=== PATIENT | female | born 1990 | race Caucasian/White ===

== ENCOUNTER 2024-09-04 21:57 | Emergency (ER) | payer MEDICAID, SELFPAY ==
--- NOTE | ~2024-09-04 | CT_ITS ---
Noncontrast CT scan of the cervical spine Technique: Multiple contiguous axial [address] images of the cervical spine were obtained and rec onstructed in 2D sagittal and coronal planes on the acquisition scanner. Dose reduction technique was used on this scan by utilizing automated exposure control, adjustment of the mA and/or kV according to patient size. The dose-length product (DLP) was 564.70 mGy-cm. Clinical History: Right upper extremity radiculopathy Findings: No fractures or dislocations. There is minimal reversal normal cervical lordosis. There is moderate degenerative disc narrowing at C5-C6. There mild uncovertebral degenerative changes, most n otably at C3-C4 and C5-C6. At C2-C3, there is no significant disc bulge or herniation. No spinal canal stenosis, cord compressio n, or neural foraminal narrowing evident. At C3-C4, no disc bulge or herniation evident. No definite spinal canal stenosis, cord compression, o r neural foraminal narrowing. At C4-C5, no disc bulge or herniation evident. No spinal canal stenosis, cord compression, or definit e neural foraminal narrowing. At C5-C6, there is mild disc osteophyte complex, with mild bilateral neural foraminal narrowing. Poss ible minimal canal stenosis. At C6-C7, there is no disc bulge or herniation. No spinal canal stenosis, cord compression, or neural foraminal narrowing. Paravertebral soft tissues are unremarkable. No prevertebral soft tissue swelling. Impression: Moderate degenerative spondylosis at C5-C6, as detailed above. Consider follow-up MR for further eval uation as indicated. Reviewed, dictated and finalized at [facility]. Impression: Moderate degenerative spondylosis at C5-C6, as detailed above. Consider follow- up MR for further evaluation as indicated.
[2024-09-04 21:59] VITALS: BP 116/59; PULSE 60; RESP 16; TEMP 36.6; O2SAT 100
--- NOTE | 2024-09-05 03:25 | PC.NURSE ---
RN used second steward services to explain the wait to see provider. Patient is asking for snack. provided with same.
[2024-09-05] MEDS: ORPHENADRINE CITRATE 100 MG TABLET.ER PO (04:26)
--- NOTE | 2024-09-05 04:30 | PC.NURSE ---
patient did not want to take the injection for Ketorolac, patient states she does not know if it will interact with other medications that she has taken. RN held medication and asked provider. MD states the medication is safe to give. Will inform patient.
[2024-09-05] MEDS: KETOROLAC (*BKC) 60 MG/2 ML VIAL IM (04:50)
--- NOTE | 2024-09-05 04:52 | PC.NURSE ---
patient is agreeable to take Ketoralac 60mg at this time, pt requesting warm blanket. RN provided same.
--- NOTE | 2024-09-05 05:42 | ED.GENADULT ---
HPI - General Adult General Chief complaint: Extremity Injury, Upper Stated complaint: redness and numbness to right arm Time Seen by Provider: 09/05/24 03:04 History of Present Illness HPI narrative: Patient 33-year-old female who presents emergency department with chief complaint of right neck and arm discomfort. Patient reports that she was seen at [place] treated with steroids and pain medications the patient also has had a CT scanning gait UA is told that she had some cervical issues. Patient is to follow-up primary care on the 10 of September reports she was told that she probably should get an MRI the patient states she has had increasing tingling in her right upper extremity since she has been seen at [place]. Related Data Home Medications Medication Instructions Recorded Confirmed methocarbamol 750 mg tablet mg 09/04/24 naproxen 500 mg tablet mg 09/04/24 oxycodone-acetaminophen 5 mg-325 tablet 09/04/24 mg tablet Allergies Allergy/AdvReac Type Severity Reaction Status Date / Time povidone-iodine Allergy Hives Verified 09/04/24 22:09 [From Betadine] Review of Systems Review of Systems: A 10 system review of systems was completed on the patient and is negative except for what is stated in the HPI. Nursing and ancillary documentation was reviewed. Exam Narrative: GENERAL: Well-appearing, well-nourished, and in no acute distress. HEAD: Normocephalic, atraumatic. EYES: PERRLA and EOMI. ENT: Nares clear, no rhinorrhea or epistaxis. Mucous membranes moist. NECK: Supple. Tenderness to palpation of paraspinous muscles of the right side of the neck CHEST: Clear to auscultation. No respiratory distress. HEART: Regular rate and rhythm. No murmur heard. Normal peripheral pulses. ABDOMEN: Soft, nontender, nondistended, normal active bowel sounds. EXTREMITIES: Normal range of motion. No edema. SKIN: Warm, dry, no rash. NEURO: No focal deficits. Alert and oriented x3. Decreased sensation in the right upper extremity PSYCH: Normal mood and affect. Course Vital Signs Vital signs: Vital Signs Temperature 36.6 C 09/04/24 21:59 Pulse Rate 60 09/04/24 21:59 Respiratory Rate 16 09/04/24 21:59 Blood Pressure 116/59 L 09/04/24 21:59 Pulse Oximetry 100 09/04/24 21:59 Oxygen Delivery Room Air 09/04/24 21:59 Temperature 36.6 C 09/04/24 21:59 Pulse Rate 60 09/04/24 21:59 Respiratory Rate 16 09/04/24 21:59 Blood Pressure 116/59 L 09/04/24 21:59 Pulse Oximetry 100 09/04/24 21:59 Oxygen Delivery Room Air 09/04/24 21:59 Medical Decision Making MDM Narrative Medical decision making narrative: Differential diagnosis includes cervical radiculopathy, peripheral nerve compression, The patient is currently on pain medications anti-inflammatories and muscle relaxers that were prescribed previously. CT scan of cervical spine has been ordered for our facility Plan will be to add steroids on to the patient's regimen and have her follow-up with spine surgery and primary care Vital Signs Vital Signs: Vital Signs Temperature 36.6 C 09/04/24 21:59 Pulse Rate 60 09/04/24 21:59 Respiratory Rate 16 09/04/24 21:59 Blood Pressure 116/59 L 09/04/24 21:59 Pulse Oximetry 100 09/04/24 21:59 Oxygen Delivery Room Air 09/04/24 21:59 Temperature 36.6 C 09/04/24 21:59 Pulse Rate 60 09/04/24 21:59 Respiratory Rate 16 09/04/24 21:59 Blood Pressure 116/59 L 09/04/24 21:59 Pulse Oximetry 100 09/04/24 21:59 Oxygen Delivery Room Air 09/04/24 21:59 Discharge Plan Discharge Clinical Impression: Cervical radiculopathy Patient Disposition: Home, Self-Care Condition: Stable Instructions: Antibiotic Form, Cervical Radiculopathy (ED), Acute Neck Pain (ED) Prescriptions: New prednisone 20 mg tablet 40 mg PO DAILY 5 Days Qty: 10 0RF No Action oxycodone-acetaminophen 5-325 mg tablet methocarbamol 750 mg tablet naproxen 500 mg tablet Follow-up/Referrals: Nathaniel,Ryan Long [Primary Care Provider] - Carlos Seals MD [Physician] - Time of Disposition: 06:24
[2024-09-05 06:49] VITALS: BP 126/84; PULSE 74; RESP 18; O2SAT 99
== END 2024-09-05 06:51 | disposition home or self-care (01) ==
PROVIDERS: Emergency Provider Emergency Medicine; PCP Internal Medicine Infectious Disease
DX: M54.12 Radiculopathy, cervical region (principal)
CPT/HCPCS: 72125; 96372; 99284; A9270; J1885